=== PATIENT | female | born 1950 | race Caucasian/White ===

== ENCOUNTER 2017-11-29 09:50 | Outpatient (CLI) | payer MEDICARE, BC ==
[~2017-11-29] VITALS: Ht 157.5 cm; Wt 71.0 kg
[~2017-11-29 09:50] MED LIST: ASPIRIN 81M81 MG/TA2 PO; B-12 100 MCG; B-12 500 MCG PO; GLUCOPHAGE500 MG/TAB PO; PLAVIX 75MG TAB75 MG PO; PRAVACHOL 40MG40 MG PO; PRINIVIL10 MG PO; SYNTHROID0.1 MG/TAB PO; TOPROL XL 50MG50 MG PO; ZANTAC 7575 MG PO
[2017-11-29 10:21] VITALS: BP 181/87; PULSE 70
[2017-11-29 10:55] VITALS: BP 131/95; PULSE 71; PULSE 74
[2017-11-29 11:05] VITALS: BP 147/61; PULSE 73
[2017-11-29 11:20] VITALS: BP 143/53; PULSE 64
[2017-11-29 11:35] VITALS: BP 142/64; PULSE 64
== END 2017-11-29 14:05 | disposition home or self-care (01) ==
LOC: COL.RAD 09:50
DX: R83.8 Other abnormal findings in cerebrospinal fluid (principal)
CPT/HCPCS: A9548